=== PATIENT | male | born 1965 | race Two or more races ===

== ENCOUNTER 2025-06-20 19:41 | Emergency (ER) | payer BC, SELFPAY ==
[2025-06-20 20:10] VITALS: BP 166/95; PULSE 78; RESP 18; TEMP 36.9; O2SAT 98
--- NOTE | 2025-06-20 20:19 | EKG_ITS ---
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
--- NOTE | 2025-06-20 20:19 | XR_ITS ---
EXAMINATION: PA lateral chest 2 views TECHNIQUE: Upright PA and lateral chest 2 views Date and time: June 20, 2025, 2049 hours, comparison July 08, 2024 INDICATIONS: Chest pain today. FINDINGS: Normal heart size Lungs are clear. Moderate thoracic spondylosis IMPRESSION: No active disease
--- NOTE | 2025-06-20 20:20 | PD.EDCHEST ---
ED Chest Pain RME/HPI General Chief Complaint: Chest Pain Stated Complaint: CHEST PAIN, VOMITING Time Seen by Provider: 06/20/25 20:10 Arrival date/time: 06/20/25 19:41 60-year-old male with a history of hypertension hyperlipidemia reports with complaints of left-sided chest pain x 2 days. Patient states the pain is so severe it causes him to vomit. Patient also complains of left shoulder and left arm pain. Patient states that he has been taking his prescribed medications only and no other medications he denies shortness of breath cough fever chills abdominal pain or nausea. Limitations: no limitations Related Data Home Medications ?Medication ?Instructions ?Recorded ?Confirmed metoprolol succinate 50 mg capsule 50 mg PO QDAY 07/10/21 07/08/24 sprinkle, ext. release 24 hr acetaminophen 500 mg tablet 500 mg PO Q6H PRN Headache 07/09/24 07/09/24 gabapentin 100 mg capsule 100 mg PO QDAY 07/09/24 07/09/24 simvastatin 20 mg tablet 20 mg PO QDAY 07/09/24 07/09/24 Previous Rx's ?Medication ?Instructions ?Recorded ondansetron 4 mg disintegrating 4 mg PO Q8H PRN nausea and 07/11/24 tablet vomiting #10 tabs Allergies Allergy/AdvReac Type Severity Reaction Status Date / Time No Known Allergies Allergy Verified 06/20/25 19:44 Review of Systems Constitutional Constitutional: Denies chills, Denies fever(s) and Denies headache(s) ENT Ears, Nose, Mouth, and Throat: Denies dizziness and Denies headache(s) Cardiovascular Cardiovascular: Reports chest pain, Denies diaphoresis and Denies dyspnea Respiratory Respiratory: Denies cough and Denies dyspnea Gastrointestinal Gastrointestinal: Denies abdominal pain and Reports vomiting Genitourinary Genitourinary: Denies dysuria and Denies flank pain Musculoskeletal Musculoskeletal: Denies arthralgias and Denies back pain Neurologic Neurologic: Denies dizziness and Denies headache(s) Past Medical History Past Medical History CARDIAC: Positive Hypercholesterolemia and Hypertension; Negative Cardiac Disorders or Congestive Heart Failure RESPIRATORY: Negative Chronic Obstructive Pulmonary Disease (COPD) or Asthma GENITOURINARY: Negative Renal Disease ENDOCRINE: Negative Diabetes Mellitus Type 1 or Diabetes Mellitus Type 2 HEMATOLOGIC: Negative Sickle Cell Disease Social History SMOKING STATUS: Never smoker SUBSTANCE USE: does not use ED Exam General Limitations: Present no limitations General appearance: Present alert and in no apparent distress Neck Neck exam: Present normal inspection, full ROM and trachea midline Chest Chest inspection: Present normal inspection and symmetric chest wall rise Respiratory Respiratory exam: Present normal lung sounds bilaterally Cardiovascular Cardiovascular exam: Present regular rate, normal rhythm and normal heart sounds Abdominal Exam Abdominal exam: Present soft and normal bowel sounds Extremities Exam Extremities exam: Present normal inspection and full ROM Back Exam Back exam: Present normal inspection and full ROM Neurological Exam Neurological exam: Present alert, oriented X3 and CN II-XII intact Psychiatric Psychiatric exam: Present normal affect and normal mood Skin Skin exam: Present warm, dry, intact and normal color Course Course Course Narrative: 60-year-old male with a history of hypertension hyperlipidemia reports with complaint of left-sided chest pain and left arm pain. Patient's chest x-ray is without infiltrates or opacities CBC is unremarkable CMP is also unremarkable troponin is negative EKG with no STEMI or ischemic changes noted normal sinus rhythm. Patient is stable nontoxic-appearing with stable vital signs differential diagnosis includes musculoskeletal pain versus costochondritis versus anxiety. Patient will be discharged advised on vxfo-xju-ohxighc medications and following up with primary care provider in 24 to 48 hours. Patient is advised that if symptoms should worsen to return to the the emergency department or call 911 immediately Quality Measures none Orders Category Date Time Status EKG (ED ONLY) *Do not use* NOW Care 06/20/25 20:19 Completed EKG (ED Only) Stat Exams 06/20/25 20:19 Draft XR chest 2V Stat Exams 06/20/25 20:19 Completed CBC Stat Lab 06/20/25 20:45 Completed CMP [Comprehensive Metabolic Panel] Stat Lab 06/20/25 20:45 Completed Troponin I Stat Lab 06/20/25 20:45 Completed Vital Signs Vital signs: Vital Signs Temperature 98.4 F 06/20/25 20:10 Pulse Rate 78 06/20/25 20:10 Respiratory Rate 18 06/20/25 20:10 Blood Pressure 166/95 H 06/20/25 20:10 Pulse Oximetry (%) 98 06/20/25 20:10 Oxygen Delivery Method Room Air 06/20/25 20:10 PROCEDURES: EKG Interpretation #1: EKG Impression: Normal sinus rhythm, No acute ST-T changes and No ischemic changes Chest Pain Patient data External records reviewed:: None Clinical information provided by:: patient Social determinants that could affect healthcare access:: none Patient has the following chronic illnesses:: HTN, Hyperlipidemia How is presenting disease/condition affected by chronic disease/condition?: uneffected by Evaluation data The following diagnostics were reviewed and interpreted by me:: lab results and radiology exam(s) Lab and/or radiology exams considered but not ordered:: none Interpretation Summary: EKG troponin other blood labs are negative for cardiac or pulmonary events Medications / Prescriptions Medications or Prescriptions considered but not ordered:: None Medication administrations:: None Consultations Consultation(s) initiated? (list below): No Diagnosis Most likely diagnosis given after review of the tests above:: Musculoskeletal chest pain Admission Indicated Admission indicated?: not indicated Admission Request Was there a request for admission?: No Disposition Plan Disposition Plan: Discharge Discharge Attestation Discharge Attestation: The patient and all family members were given an opportunity to ask questions and understood the discharge instructions. Discharge instructions specifically effects, indications for sooner follow up or return to the emergency department, and the expected course of current diagnosis. Patient condition: Stable Discharge Plan Plan Patient Disposition: HOME (Self Care) Prescriptions/Referrals Prescriptions/Med Rec: No Action metoprolol succinate 50 mg Capsule,Sprinkle,Er 24hr 50 mg PO QDAY acetaminophen 500 mg Tablet 500 mg PO Q6H PRN (Reason: Headache) simvastatin 20 mg Tablet 20 mg PO QDAY gabapentin 100 mg Capsule 100 mg PO QDAY ondansetron 4 mg tablet,disintegrating 4 mg PO Q8H PRN (Reason: nausea and vomiting) Qty: 10 0RF Referrals: No Primary/Family,Physician [Primary Care Provider] - In 1 week Problem List Clinical Impression: Non-cardiac chest pain Patient/Caregiver Discharge Instructions Discharge Activity: activity as tolerated Education Materials: ED Chest Pain, Noncardiac Additional Instructions: Your exam shows that your pain is not caused by your heart or your lungs therefore you should take tabu-sti-ksaigwj medication such as Tylenol or ibuprofen and follow-up with your primary care provider in 48 hours. If symptoms worsen return to the emergency department immediately or call 911 Print Language: Somali Stand Alone Forms: Debo Award Info., Patient Portal Info Letter
[2025-06-20 21:15] LABS: Basophils # (Auto) 0.1 Thou/mm3 (0.0-0.2); Basophils % (Auto) 2 % (0-2.5); Eosinophils # (Auto) 0.1 Thou/mm3 (0.0-0.5); Eosinophils % (Auto) 2 % (0-10); Hematocrit 42.1 % (41.0-53.0); Hemoglobin 14.6 g/dL (13.5-16.0); Immature Granulocytes Auto 0.01 Thou/mm3 (0.00-0.00); Lymphocytes # (Auto) 2.0 Thou/mm3 (1.0-4.8); Lymphocytes % (Auto) 34 % (10-50); Mean Corpuscular HGB Conc 34.7 g/dl (31.0-37.0); Mean Corpuscular Hemoglobin 29.0 pg (25.0-35.0); Mean Corpuscular Volume 84 fL (80-100); Monocytes # (Auto) 0.5 Thou/mm3 (0.0-0.8); Monocytes % (Auto) 8 % (0-12); Neutrophils # (Auto) 3.3 Thou/mm3 (1.8-7.7); Neutrophils % (Auto) 55 % (37-80); Nucleated Red Blood Cell # 0.00 Thou/mm3 (0.00-0.00); Nucleated Red Blood Cell % 0 /100 WBC (0); Platelet Count 172 Thou/mm3 (140-440); RDW Standard Deviation 40.3 fL (35.1-43.9); Red Blood Count 5.03 Miln/mm3 (4.50-5.90); White Blood Count 5.9 Thou/mm3 (3.8-10.6)
[2025-06-20 21:23] LABS: Alanine Aminotransferase 19 U/L (10-49); Albumin, Serum 4.4 gm/dL (3.4-4.8); Albumin/Globulin Ratio 1.5 (1.2-2.2); Alkaline Phosphatase 89 U/L (46-116); Anion Gap 10 (7-16); Aspartate Amino Transferase 23 U/L (0-34); BUN/Creatinine Ratio 17 Ratio (12-20); Bilirubin,Total 0.3 mg/dL (0.3-1.2); Blood Urea Nitrogen 17 mg/dL (9-23); Calcium 9.0 mg/dL (8.3-10.6); Calcium (Corrected) 9.0 mg/dL (8.5-10.1); Carbon Dioxide 22.9 mMol/L (20.0-31.0); Chloride 107 mMol/L (98-107); Creatinine (Component) 1.0 mg/dL (0.6-1.3); Globulin 2.9 gm/dL (2.3-3.5); Glucose 146 mg/dL (74-106); Osmolality,Calculated 283 (275-295); Potassium 4.0 mMol/L (3.4-5.1); Sodium 140 mMol/L (136-145); Total Protein 7.3 gm/dL (5.7-8.2); Troponin I < 0.002 ng/mL (0.0-0.045); eGFR > 60 See Note
[2025-06-20 23:50] VITALS: BP 134/87; PULSE 64; RESP 16; TEMP 36.6; O2SAT 97
== END 2025-06-21 00:02 | disposition home or self-care (01) ==
PROVIDERS: Physician Assistant; Emergency Provider Emergency Medicine
DX: R07.89 Other chest pain (principal); E78.5 Hyperlipidemia, unspecified; I10 Essential (primary) hypertension
CPT/HCPCS: 36415; 71046; 80053; 84484; 85025; 93005; 99283